=== PATIENT | female | born 1975 | race Caucasian/White ===

== ENCOUNTER 2021-02-23 23:23 | Inpatient (IN) | payer MEDICARE, OTHER ==
[~2021-02-23] VITALS: Ht 152.4 cm; Wt 57.0 kg
[~2021-02-23 23:23] MED LIST: ALDACTONE100 MG PO; ALPRAZOLAM0.5 MG PO; AMITRIPTYLINE H10 MG PO; BUPRENORPHIN-N1 EACH SL; CALCIUM600 MG PO; CARAFATE1 GM PO; CELEXA10 MG PO; CLARITIN10 MG PO; COLACE100 MG PO; CREON DR 24,001 EACH PO; CYANOCOBAL1000 MCG/1 INJ; DAILY VITE1 EACH PO; ELIQUIS 2.5 MG2.5 MG PO; KLOR-CON M1515 MEQ PO; LIORESAL TAB 1010 MG PO; LOPRESSOR 25 MG25 MG PO; LOPRESSOR 50 MG50 MG PO; MAGOX 400400 MG PO; NORCO 5-325 TA1 EACH PO; PARLODEL5 MG PO; PERCOCET 10-321 EACH PO; PHENERGAN 12.12.5 M1 PO; POTASSIUM CHLO10 MEQ PO; ROCALTROL0.5 MCG PO; SANDOSTATI100 MCG/ML INJ; THERAGRAN M TAB1 EA PO; TORADOL 10 MG T10 MG PO; TUMS ULTRA400 MG PO; VITAMIN C1000 MG PO; VITAMIN C500 M1 PO; VITAMIN D32000 UNI1 PO; VITAMIN E400 UNI2 PO; [UNRECOGNIZED DRUG - OTHER] PO
[2021-02-24] MEDS ORDERED: ZYLOPRIM 300 M300 MG PO (01:52)
[2021-02-24] MEDS ORDERED: [UNRECOGNIZED DRUG - CODE] PO (01:58)
[2021-02-24] MEDS ORDERED: BENTYL 10MG CAP10 MG PO (02:11)
[2021-02-24] MEDS ORDERED: GLUCAGON EMERGEN1 MG SC (02:13)
[2021-02-24] MEDS ORDERED: INSULIN AS100 UNIT/2 SC ×2 (02:14)
[2021-02-24] MEDS ORDERED: ACIDOPHILUS1 EACH PO (02:15)
[2021-02-24] MEDS ORDERED: CHRONULAC20 GM/30 M PO (02:15)
[2021-02-24] MEDS ORDERED: LEVOTHYROXINE25 MC1 PO (02:16)
[2021-02-24] MEDS ORDERED: METHOCARBAMOL500 MG PO (02:17)
[2021-02-24] MEDS ORDERED: NITROGLYCERIN0.4 MG PO (02:18)
[2021-02-24] MEDS ORDERED: SELENIUM100 MCG PO (02:20)
[2021-02-24] MEDS ORDERED: BACLOFEN10 MG PO (02:24)
[2021-02-24] MEDS ORDERED: BUPRENORPHIN-N1 EACH SL (02:25)
[2021-02-24 03:32] LABS: HEMOGLOBIN 9.8 gm/dl (12.3-15.3); RED BLOOD COUNT 2.92 M/UL (4.00-5.10); WHITE BLOOD COUNT 9.7 K/UL (4.5-11.0)
[2021-02-24] MEDS ORDERED: RIFADIN 300 MG300 MG PO (12:08)
[2021-02-24] MEDS ORDERED: FUROSEMIDE10 MG/1 M1 IVP (12:08)
[2021-02-24] MEDS ORDERED: MERREM (12:35)
[2021-02-24] MEDS ORDERED: [UNRECOGNIZED DRUG - OTHER] (12:35)
[2021-02-24] MEDS ORDERED: SEDATION (12:35)
[2021-02-24] MEDS ORDERED: vanco (12:35)
[2021-02-24 13:44] LABS: BUN/CREATININE RATIO 16 (0-10)
[2021-02-24 23:19] LABS: ACINETOBACTER BAUMANNII Not Detected (Negative); CANDIDA ALBICANS Not Detected (Negative); CANDIDA KRUSEI Not Detected (Negative); CANDIDA TROPICALIS Not Detected (Negative); ENTEROCOCCUS Not Detected (Negative); ESCHERICHIA COLI Not Detected (Negative); HAEMOPHILUS INFLUENZAE Not Detected (Negative); KLEBSIELLA OXYTOCA Not Detected (Negative); KLEBSIELLA PNEUMONIAE Not Detected (Negative); KPC-CARBAPENEM-RESISTANCE GENE Not Detected (Negative); PROTEUS Not Detected (Negative); PSEUDOMONAS AERUGINOSA Not Detected (Negative); SERRATIA MARCESANS Not Detected (Negative); STAPHYLOCOCCUS Not Detected (Negative); STAPHYLOCOCCUS AUREUS Not Detected (Negative); STREP AGALACTIAE (GROUP B) Not Detected (Negative); STREP PYOGENES (GROUP A) Not Detected (Negative); STREPTOCOCCUS Not Detected (Negative); mecA (METHICILLIN RESIST GENE Not Detected (Negative); vanA/B (VANCOMYCIN RESIST GENE Not Detected (Negative)
[2021-02-25] MEDS ORDERED: VITAMIN C500 M4 PO (01:53)
[2021-02-25] MEDS ORDERED: BACLOFEN10 MG PO (01:54)
[2021-02-25] MEDS ORDERED: CALCIUM500 MG PO (01:55)
[2021-02-25] MEDS ORDERED: CLARITIN10 MG PO (01:56)
[2021-02-25] MEDS ORDERED: VITAMIN D310 MCG/1 M PO (01:57)
[2021-02-25] MEDS ORDERED: MAGNESIUM400 M2 PO (02:16)
[2021-02-25] MEDS ORDERED: POTASSIUM20 MEQ/15 PO (02:20)
[2021-02-25] MEDS ORDERED: CREON DR 36,001 EACH PO ×2 (02:20→12:10)
[2021-02-25] MEDS ORDERED: CARAFATE1 GM PO (02:21)
[2021-02-25 04:25] LABS: WHITE BLOOD COUNT 10.7 K/UL (4.5-11.0)
[2021-02-25 04:27] LABS: RED BLOOD COUNT 2.02 M/UL (4.00-5.10)
[2021-02-25 04:42] LABS: BUN/CREATININE RATIO 15 (0-10)
[2021-02-25 08:14] LABS: BUN/CREATININE RATIO 14 (0-10)
[2021-02-25] MEDS ORDERED: CELEXA20 MG PO (13:05)
[2021-02-25] MEDS ORDERED: ZOFRAN 4 MG TAB4 MG PO (13:47)
[2021-02-25] MEDS ORDERED: LEVEMIR FL100 UNIT/1 SQ (13:48)
[2021-02-25 17:27] LABS: HEMOGLOBIN 7.9 gm/dl (12.3-15.3)
[2021-02-25] MEDS ORDERED: PROTONIX 40 MG40 M1 PO (19:22)
[2021-02-25] MEDS ORDERED: ROCALTROL0.5 MCG PO (19:28)
[2021-02-25] MEDS ORDERED: FERROUS GLUCON324 M1 PO (19:31)
--- NOTE | 2021-02-25 21:39 | NUR ---
[facility] CALLED FOR BED PLACEMENT; PATIENT TO BE TRANSFERRED TO ROOM [address] ON [address]. REPORT CALLED TO O[facility]A AT 2009. [phone]. DR. PADRON TO ASSUME CARE FOR PATIENT UPON ARRIVAL
--- NOTE | 2021-02-25 21:58 | NUR ---
[facility] AT BEDSIDE TO TRANSPORT PATIENT, ALL QUESTIONS ANSWERED. PATIENT LEFT AT [phone]
--- NOTE | 2021-02-26 04:36 | NUR ---
02/25/21; 2215: TRIED TO CONTACT [facility]TA[facility] IN REGARDS TO UPDATE ABOUT PATIENT TRANSFER TO ANOTHER FACILITY; TRIED 3 TIMES, NO ANSWER, AND WENT TO VOICEMAIL BOX AND WHEN ATTEMPTING TO LEAVE A MESSAGE, THE VOICE MAIL BOX WAS FULL.
== END 2021-02-25 22:00 | disposition short-term general hospital (02) | DRG 871 ==
LOC: CCU 23:23
PROVIDERS: Internal Medicine; ADMIT Internal Medicine
PROC: 03HY32Z Insertion of Monitoring Device into Upper Artery, Percutaneous Approach (ICD-10-PCS; principal; 2021-02-24)
PROC: 4A133B1 Monitoring of Arterial Pressure, Peripheral, Percutaneous Approach (ICD-10-PCS; 2021-02-24)
PROC: 4A133J1 Monitoring of Arterial Pulse, Peripheral, Percutaneous Approach (ICD-10-PCS; 2021-02-24)
PROC: 5A1945Z Respiratory Ventilation, 24-96 Consecutive Hours (ICD-10-PCS; 2021-02-24)
PROC: 0BH18EZ Insertion of Endotracheal Airway into Trachea, Via Natural or Artificial Opening Endoscopic (ICD-10-PCS; 2021-02-24)
PROC: 30233R1 Transfusion of Nonautologous Platelets into Peripheral Vein, Percutaneous Approach (ICD-10-PCS; 2021-02-25)
DX: A41.9 Sepsis, unspecified organism (principal); R65.21 Severe sepsis with septic shock; J18.9 Pneumonia, unspecified organism; J96.01 Acute respiratory failure with hypoxia; E43 Unspecified severe protein-calorie malnutrition; G93.41 Metabolic encephalopathy; K91.2 Postsurgical malabsorption, not elsewhere classified; Z20.822 Contact with and (suspected) exposure to COVID-19; K72.90 Hepatic failure, unspecified without coma; E03.9 Hypothyroidism, unspecified; F41.9 Anxiety disorder, unspecified; F32.A Depression, unspecified; D64.9 Anemia, unspecified; K31.89 Other diseases of stomach and duodenum; E83.42 Hypomagnesemia; E87.6 Hypokalemia; Z87.11 Personal history of peptic ulcer disease; Z88.1 Allergy status to other antibiotic agents; Z90.411 Acquired partial absence of pancreas; Z98.890 Other specified postprocedural states; Z68.24 Body mass index [BMI] 24.0-24.9, adult
CPT/HCPCS: ECHO; 36415; 36430; 36600; 71045; 80048; 80053; 81001; 82140; 82533; 82550; 82803; 82962; 83540; 83550; 83735; 83880; 84100; 84132; 84439; 84443; 85014; 85018; 85025; 85610; 85730; 86140; 86850; 86900; 86901; 86920; 86922; 87040; 87081; 87150; 93005; 93306; 94002; 94003; 94760; A6212; C9113; J1644; J1720; J1756; J1940; J2185; J2250; J2370; J2704; J3370; J3475; J3480; J7030; J7040; J7050; J7070; P9016; P9047; U0002